=== PATIENT | female | born 1980 | race African-American/Black ===

== ENCOUNTER 2016-09-24 04:57 | Inpatient (IN) ==
[2016-09-24] MEDS ORDERED: BUTORPHANOL 2 MG/ML VIAL IV PRN (05:19)
[2016-09-24] MEDS ORDERED: ONDANSETRON 4 MG/2 ML VIAL IV PRN (05:19)
[2016-09-24] MEDS ORDERED: MEPERIDINE 50 MG/1 ML VIAL IV PRN (05:19)
[2016-09-24] MEDS ORDERED: OXYTOCIN/LR 20 UNIT/1,000 ML BAG IV SCH (05:30)
[2016-09-24] MEDS: LACTATED RINGERS 1,000 ML IV SCH ×3 (05:50→14:11)
[2016-09-24 05:54] LABS: Basophils % 0.5 % (0.0-0.8); Eosinophils % 0.5 % (0.00-10.9); Hemoglobin 11.8 GM/DL (12.0-16.0); Immature Granulocytes % 1.2 %; Immature Granulocytes Absolute 0.07 #; Lymphocytes # 1.8 10*3/uL (1.4-4.0); Mean Corpuscular HGB Conc 32.8 GM/DL (32-36); Mean Corpuscular Hemoglobin 30 PG (27-34); Mean Corpuscular Volume 91.6 FL (87-102); Mean Platelet Volume 10.8 FL (9.6-12.0); Monocytes # 0.6 10*3/uL (0.11-0.8); Monocytes % 9.4 % (1.7-12.7); Neutrophils # 3.5 10*3/uL (1.4-7.4); Neutrophils % 58.4 % (38.7-73.9); Platelet Count 159 T/CUMM (130-400); Red Blood Count 3.93 MC/CUMM (3.8-5.5); Red Cell Distribution Width 16.3 % (9.3-17.3); White Blood Count 5.9 T/CUMM (4-12)
[2016-09-24 06:29] LABS: Albumin 2.9 G/DL (3.4-5.0); Bilirubin,Total 0.5 MG/DL (0.2-1.0); Calcium 8.8 MG/DL (8.5-10.1); Osmolality,Calculated 271.7 MOS/KG (273-304); Potassium 3.8 MMOL/L (3.5-5.1); Total Protein 6.5 G/DL (6.4-8.3)
[2016-09-24] MEDS ORDERED: hydrOXYzine HCL 25 MG/1 ML VIAL IM PRN (08:56)
[2016-09-24] MEDS ORDERED: CITRIC ACID/SODIUM CITRATE 30 ML UDCUP PO ONE (08:56)
[2016-09-24] MEDS ORDERED: ONDANSETRON 4 MG/2 ML VIAL IV ONE (08:56)
[2016-09-24] MEDS ORDERED: LACTATED RINGERS 1,000 ML IV ONE (08:56)
[2016-09-24] MEDS ORDERED: fentaNYL 2 MCG/ROPIV 0.2% EPID 150 ML EPIDURAL SCH (08:56)
[2016-09-24] MEDS ORDERED: PROMETHAZINE 25 MG/1 ML VIAL IM ONE (08:56)
[2016-09-24] MEDS ORDERED: FAMOTIDINE 20 MG/2 ML VIAL IV ONE (08:56)
[2016-09-24] MEDS ORDERED: diphenhydrAMINE 50 MG/1 ML VIAL IV PRN ×2 (08:56)
[2016-09-24] MEDS ORDERED: ePHEDrine 50 MG/ML AMP IV PRN (08:56)
--- NOTE | 2016-09-24 09:02 | OB/GYN History & Physical ---
History of Present Illness Chief complaint: Here for inducion of labor at term with favorable cervix History of present illness: Ms. Henriquez is a 35 year old female that is a with an EDC 09/30/16 per ultrasound with EGA @ 39.1 wks. Records are available, up to date, and reviewed. She has had a total of 14 visits and 5 ultrasounds. During the course of her she has had a fibroid with increasing pain until approximately 20 wks that resolved, Vitamin D deficiency and given Vitamin D supplementation throughout , cervical change- placed on maternity leave, procardia 10 mg po every 4 hours, Celestone IM x 2 doses, and bedrest. Labs: Blood type O positive; Antibody screen negative; Rubella immune; VDRL non reactive; Urine culture negative; HBsAg negative; HIV negative; GC negative; Chlamydia negative; UDS negative; Vitamin D 9.4; Cystic Fibrosis negative; MSAFP negative; Diabetic Screen 123; H/H 08/30/16 10.6/34.4; GBS negative Home Medications Medication Instructions Recorded Confirmed Type No122/Iron/Folic Acid 1 each PO DAILY 03/23/16 09/24/16 History [ Multi Tablet] Allergies Allergy/AdvReac Type Severity Reaction Status Date / Time No Known Allergies Allergy Unverified 03/23/16 19:50 12 point system: reviewed and no additional remarkable complaints except as stated Medical,Surgical,& Family Hx - Medical History Reproductive: History of: Reproductive Problems (fibroids) Other: History of: Miscellaneous Medical Problems (bacterial vaginosis) - Surgical History Surgical History: noncontributory Reproductive Surgeries: Patient denies;: Breast Surgery, Section, Dilation and Curettage, Gynecologic Surgery, Hysterectomy, Tubal Ligation - Social History Smoking Status: Never smoker Frequency of Alcohol Use: None Type of Drug Use: None Marital Status: Lives With:: Spouse Functional capacity: independent ambulation 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 IUPC and FSE applied without difficulty Breast: bilateral: normal Abdomen obstetrics: Present: bowel sounds normal Vagina: Present: normal moisture Uterus exam: Present: enlarged (gravid, soft, nontender, EFW 7-7.5 pounds) Anus/Rectum: Present: normal perianal skin - Head Head exam: Present: normal inspection - Eye Eye exam: Present: EOMI Pupils: Present: normal accommodation - ENT ENT exam: Present: normal exam - Neck Neck exam: Present: normal inspection - Respiratory Respiratory exam: Present: clear to auscultation bilaterally - Cardiovascular Cardiovascular exam: Present: regular rate and rhythm - GI/Abdominal GI/Abdominal exam: Present: normal bowel sounds - Extremities Exam Extremities exam: Present: normal inspection, normal capillary refill - Back Exam Back exam: Present: normal inspection - Neurological Exam Neurological exam: Present: alert, oriented X3, normal gait - Psychiatric Psychiatric exam: Present: normal affect, normal mood - Skin Skin exam: Present: normal color, warm, dry Assessment and Plan (1) Vitamin D deficiency Status: Acute Current Visit: Yes (2) Elective induction of labor planned Status: Acute Current Visit: Yes (3) Uterine fibroid Status: Acute Current Visit: Yes (4) Intrauterine normal Status: Acute Current Visit: Yes Results - Labs CBC & BMP: 09/24/16 05:47 09/24/16 05:47
[2016-09-24 11:29] LABS: Apearance,Urine CLEAR (Clear); Bilirubin,Urine Negative (Negative); Blood, Urine Negative (Negative); Glucose,Urine (UA) Negative (Negative); Ketones,Urine 20 mg/dL (Negative); Mucus,Urine Occasional /LPF (Occasional); Nitrite,Urine Negative (Negative); Protein,Urine Negative; RBC,Urine <1 /HPF (0-4); Urine Color Yellow (Yellow); Urine Specific Gravity 1.011 (1.001-1.035); Urine Urobilinogen < 2.0 EU/DL (0.2-1.0); WBC,Urine <1 /HPF (0-6)
--- NOTE | 2016-09-24 12:49 | Operative Note ---
Date of procedure: 09/24/16 Pre-op diagnosis: IUP @ 39.1 wks, GBS positive, Induction of Labor Post-op diagnosis: other () Procedure: Patient received dorsal lithotomy position. Patient was draped and prepped. At 1228, head delivered in KASSIDY position with hand presenting with left side of face. He hand-delivered and posterior shoulder delivered. Anterior shoulder delivered easily without difficulty. delivered in usual fashion and secured. Mouth and nose bulb suctioned. Cord double clamped and cut. Cord blood and cord gases obtained. Male placed in radiant warmer and attended per nursery nurse. At 1232, spontaneous delivery of placenta via Piter position, with 3 vessel cord noted, normal cord insertion, with minimal calcifications. Hemostasis maintained with fundal massage and Pitocin 20 units in 1000 cc of lactated Ringer. Perineum inspected with periurethral laceration noted and repaired with 3-0 chromic. July with Apgars 8 and 9 weighing 8 pounds and 1 ounce Mother and baby stable. Mother desires to breast-feed. Anesthesia: epidural Surgeon / Physician: Lali Tolliver Estimated blood loss: other (150cc) Specimens: other (Placenta to pathology secondary to group beta strep positive) Condition: stable Disposition: floor Results - Labs CBC & BMP: 09/24/16 05:47 09/24/16 05:47 Discharge Plan - Discharge Medications No Action No122/Iron/Folic Acid [ Multi Tablet] 1 each PO DAILY - Follow Up or Referral - Forms/Instructions
[2016-09-24] MEDS ORDERED: WITCH HAZEL PADS 100/JAR TOP PRN (13:01)
[2016-09-24] MEDS ORDERED: DIPH/TET/ACEL PERT BOOSTER VACCINE 0.5 ML VIAL IM ONE (13:01)
[2016-09-24] MEDS ORDERED: MEASLES/MUMPS/RUBELLA VACCINE 0.5 ML VIAL SUBCUT ONE (13:01)
[2016-09-24] MEDS ORDERED: HYDROCORTISONE 2.5% RECTAL CREAM 30 GM TUBE TOP PRN (13:01)
[2016-09-24] MEDS ORDERED: ACETAMINOPHEN 325 MG TABLET PO PRN (13:01)
[2016-09-24] MEDS ORDERED: BENZOCAINE 20%/MENTHOL 0.5% SPRAY 56 GM CAN TOP PRN (13:01)
[2016-09-24] MEDS ORDERED: LANOLIN 50% CREAM 0.3 OZ TUBE TOP PRN (13:01)
[2016-09-24] MEDS ORDERED: RHO(D) IMMUNE GLOBULIN 300 MCG SYRINGE IM ONE (13:01)
[2016-09-24] MEDS ORDERED: BISACODYL 10 MG SUPP RECTAL PRN (13:01)
[2016-09-24 13:03] LABS: Cord Venous Blood HCO3 25.6 MMOL/L
[2016-09-24] MEDS: oxyCODONE/ACETAMINOPHEN 5-325 MG TABLET PO PRN ×2 (17:10→22:58)
[2016-09-24] MEDS: IBUPROFEN 800 MG TABLET PO PRN (17:10)
--- NOTE | 2016-09-24 20:14 | Anesthesia Post-Op ---
Anesthesia Post OP - Post Ansesthetic Evaluation Patient seen in post op: Yes Resp: within normal limits CV: within normal limits Mental: within normal limits Temp: within normal limits [id number]: within normal limits Nausea and Vomiting: within normal limits Pain: within normal limits
[2016-09-24] MEDS: FERROUS SULFATE 325 MG TABLET PO SCH (20:23)
[2016-09-24] MEDS: DOCUSATE SODIUM 100 MG CAPSULE PO SCH (20:23)
[2016-09-25] MEDS: oxyCODONE/ACETAMINOPHEN 5-325 MG TABLET PO PRN ×2 (04:44→14:24)
[2016-09-25 06:55] LABS: Basophils % 0.4 % (0.0-0.8); Eosinophils # 0.1 10*3/uL (0.0-0.87); Eosinophils % 1.2 % (0.00-10.9); Hematocrit 32.6 VOL% (35.7-47.0); Hemoglobin 10.5 GM/DL (12.0-16.0); Immature Granulocytes % 0.7 %; Immature Granulocytes Absolute 0.06 #; Lymphocytes # 2.1 10*3/uL (1.4-4.0); Lymphocytes % 22.6 % (21.3-54.2); Mean Corpuscular HGB Conc 32.2 GM/DL (32-36); Mean Corpuscular Hemoglobin 30 PG (27-34); Mean Corpuscular Volume 93.7 FL (87-102); Mean Platelet Volume 10.4 FL (9.6-12.0); Monocytes # 0.9 10*3/uL (0.11-0.8); Monocytes % 9.3 % (1.7-12.7); Neutrophils # 6.1 10*3/uL (1.4-7.4); Neutrophils % 65.8 % (38.7-73.9); Platelet Count 132 T/CUMM (130-400); Red Blood Count 3.48 MC/CUMM (3.8-5.5); Red Cell Distribution Width 16.3 % (9.3-17.3); White Blood Count 9.2 T/CUMM (4-12)
--- NOTE | 2016-09-25 08:11 | OB/GYN Progress Note ---
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 . Desires a tubal ligation for control method of choice A: Day 2, Breastfeding, Anemia, Stable P: Continue routine care. DC home tomorrow. Questions answered to desired level of satisfaction. Exam COAL TOWER OPERATOR - Constitutional Vitals: Vital Signs Temp Pulse Resp BP Pulse Ox 09/25/16 07:21 97.3 F L 78 18 111/62 97 09/25/16 04:00 98.1 F 74 18 110/65 99 09/25/16 02:00 18 09/25/16 00:00 98.0 F 76 18 120/72 98 09/24/16 20:00 97.8 F 87 18 116/67 97 09/24/16 16:45 72 20 115/58 99 09/24/16 15:45 97.4 F L 71 20 117/66 100 09/24/16 12:00 97.2 F L 75 20 129/65 General appearance: no acute distress - Antepartum / Post Post Exam Breast: bilateral: normal Abdomen obstetrics: Present: bowel sounds normal Vagina: Present: normal moisture (no edema, healing well) Uterus exam: Present: enlarged (firm, midline, 2 below umbilicus) Anus/Rectum: Present: normal perianal skin - Head Head exam: Present: normal inspection - Eye Eye exam: Present: EOMI - ENT ENT exam: Present: normal exam - Neck Neck exam: Present: normal inspection - Respiratory Respiratory exam: Present: clear to auscultation bilaterally - Breast Menstruation: other (scant rubra noted on perineal pad) - Cardiovascular Cardiovascular exam: Present: regular rate and rhythm - GI/Abdominal GI/Abdominal exam: Present: normal bowel sounds - Extremities Exam Extremities exam: Present: normal inspection, normal capillary refill, full ROM - Back Exam Back exam: Present: normal inspection - Neurological Exam Neurological exam: Present: alert, oriented X3, normal gait - Psychiatric Psychiatric exam: Present: normal affect, normal mood - Skin Skin exam: Present: normal color, warm, dry Results - Labs CBC & BMP: 09/25/16 06:51 09/24/16 05:47 Labs: Laboratory Results - last 72 hr 09/24/16 09/24/16 09/24/16 05:47 05:47 05:47 WBC 5.9 RBC 3.93 Hgb 11.8 L Hct 36.0 MCV 91.6 MCH 30 MCHC 32.8 RDW 16.3 Plt Count 159 MPV 10.8 Neut % (Auto) 58.4 Lymph % (Auto) 30.0 [place] % (Auto) 9.4 Eos % (Auto) 0.5 Baso % (Auto) 0.5 Neut # (Auto) 3.5 Lymph # (Auto) 1.8 [place] # (Auto) 0.6 Eos # (Auto) 0.0 Baso # (Auto) 0.0 Immature Gran % 1.2 Nucleated RBC % 0.0 Immature Gran # 0.07 Nucleated RBCs # 0.00 Cord VBG pH Cord VBG pCO2 Cord VBG pO2 Cord VBG HCO3 Cord VBG Total CO2 Cord VBG Base Excess Sodium 138 Potassium 3.8 Chloride 106 Carbon Dioxide 22 Anion Gap 13.8 BUN 6 L Creatinine 0.70 GFR Calculation 144 BUN/Creatinine Ratio 8.00 Glucose 82 Calculated Osmolality 271.7 L Calcium 8.8 Total Bilirubin 0.50 AST 13 ALT 11 L Alkaline Phosphatase 145 H Total Protein 6.5 Albumin 2.9 L Globulin 3.6 H Albumin/Globulin Ratio 0.8 L Urine Color Urine Appearance Urine pH Ur Specific [place] Urine Protein Urine Glucose (UA) Urine Ketones Urine Blood Urine Nitrate Urine Bilirubin Urine Urobilinogen Urine Leukocytes Urine RBC Urine WBC Urine Mucus Ur Culture Indicated? Blood Type O POSITIVE Antibody Screen Negative 09/24/16 09/24/16 09/25/16 11:13 Unknown 06:51 WBC 9.2 D RBC 3.48 L Hgb 10.5 L Hct 32.6 L MCV 93.7 MCH 30 MCHC 32.2 RDW 16.3 Plt Count 132 MPV 10.4 Neut % (Auto) 65.8 Lymph % (Auto) 22.6 [place] % (Auto) 9.3 Eos % (Auto) 1.2 Baso % (Auto) 0.4 Neut # (Auto) 6.1 Lymph # (Auto) 2.1 [place] # (Auto) 0.9 H Eos # (Auto) 0.1 Baso # (Auto) 0.0 Immature Gran % 0.7 Nucleated RBC % 0.0 Immature Gran # 0.06 Nucleated RBCs # 0.00 Cord VBG pH 7.345 Cord VBG pCO2 48.0 Cord VBG pO2 21.0 Cord VBG HCO3 25.6 Cord VBG Total CO2 27.1 Cord VBG Base Excess -0.6 Sodium Potassium Chloride Carbon Dioxide Anion Gap BUN Creatinine GFR Calculation BUN/Creatinine Ratio Glucose Calculated Osmolality Calcium Total Bilirubin AST ALT Alkaline Phosphatase Total Protein Albumin Globulin Albumin/Globulin Ratio Urine Color Yellow Urine Appearance Clear Urine pH 8.0 Ur Specific [place] 1.011 Urine Protein Negative Urine Glucose (UA) Negative Urine Ketones 20 Urine Blood Negative Urine Nitrate Negative Urine Bilirubin Negative Urine Urobilinogen < 2.0 H Urine Leukocytes Negative Urine RBC <1 Urine WBC <1 Urine Mucus Occasional Ur Culture Indicated? Not indicated Blood Type Antibody Screen
[2016-09-25] MEDS: DOCUSATE SODIUM 100 MG CAPSULE PO SCH ×2 (09:41→21:24)
[2016-09-25] MEDS: FERROUS SULFATE 325 MG TABLET PO SCH ×3 (09:41→21:24)
[2016-09-25] MEDS: IBUPROFEN 800 MG TABLET PO PRN ×2 (10:05→22:21)
[2016-09-26 07:22] VITALS: BP 129/72
--- NOTE | 2016-09-26 08:43 | Discharge Summary ---
Hospital Course - Hospital Course Hospital Course: Patient is a 35 y/o now P2002 that presented for induction of labor @ 39 wks gestation. Labor progressed under and epidural anesthetic to deliver an 8 pound 1 ounce male with Apgars 8 and 9 experience a periurethral lacertaion that was repaired. She is without difficulty. She has been stable and is being discharged home today. Diagnosis - Discharge Diagnosis (1) Vitamin D deficiency Status: Acute (2) Elective induction of labor planned Status: Resolved (3) Uterine fibroid Status: Resolved (4) Intrauterine normal Status: Resolved (5) (normal spontaneous vaginal delivery) Status: Resolved Discharge Plan - Discharge Data Disposition: Disch To Home/Self Care Condition at Discharge: Stable Discharge Diet: advance to your usual diet Activity: resume usual activities as tolerated Hygiene: may shower Weight Bearing at Discharge: full weight bearing Driving: not for (2 weeks) Contact your physician if you experience:: fever over 101, Difficulty voiding, Redness or swelling, Nausea/Vomiting, Shortness of breath, Bleeding, pain uncontrolled by pain medications - Discharge Medications New Ferrous Sulfate Tab [Feosol Original Tab] 325 mg PO BID #60 tablet Ibuprofen 800 mg PO Q8HR PRN #90 tablet PRN Reason: Pain No Action No122/Iron/Folic Acid [ Multi Tablet] 1 each PO DAILY - Follow Up or Referral Follow Up: Lali Tolliver CFNP [Advanced Practice Nurse] - - Forms/Instructions Exam - Constitutional Vitals: Period Temp Pulse Resp BP Sys/[place]án Pulse Ox Last 24 Hr 97.2 F-98.2 F 70-95 16-20 116-150/58-82 96-98 General appearance: no acute distress - Head Head exam: Present: normal inspection - Eye Eye exam: Present: EOMI Pupils: Present: normal accommodation - ENT ENT exam: Present: normal exam - Neck Neck exam: Present: normal inspection - Respiratory Respiratory exam: Present: clear to auscultation bilaterally - Cardiovascular Cardiovascular exam: Present: regular rate and rhythm - GI/Abdominal GI/Abdominal exam: Present: normal bowel sounds (uterus firm, midline, 3 fingerbreaths below the umbilicus. Scant rubra noted on perineal pad) - Extremities Exam Extremities exam: Present: normal inspection, normal capillary refill, full ROM - Back Exam Back exam: Present: normal inspection - Neurological Exam Neurological exam: Present: alert, oriented X3, normal gait - Psychiatric Psychiatric exam: Present: normal affect, normal mood - Skin Skin exam: Present: normal color, warm, dry Discharge Results Procedures and tests throughout hospitalization: Laboratory Results - last 72 hr 09/24/16 09/24/16 09/24/16 05:47 05:47 05:47 WBC 5.9 RBC 3.93 Hgb 11.8 L Hct 36.0 MCV 91.6 MCH 30 MCHC 32.8 RDW 16.3 Plt Count 159 MPV 10.8 Neut % (Auto) 58.4 Lymph % (Auto) 30.0 [place] % (Auto) 9.4 Eos % (Auto) 0.5 Baso % (Auto) 0.5 Neut # (Auto) 3.5 Lymph # (Auto) 1.8 [place] # (Auto) 0.6 Eos # (Auto) 0.0 Baso # (Auto) 0.0 Immature Gran % 1.2 Nucleated RBC % 0.0 Immature Gran # 0.07 Nucleated RBCs # 0.00 Cord VBG pH Cord VBG pCO2 Cord VBG pO2 Cord VBG HCO3 Cord VBG Total CO2 Cord VBG Base Excess Sodium 138 Potassium 3.8 Chloride 106 Carbon Dioxide 22 Anion Gap 13.8 BUN 6 L Creatinine 0.70 GFR Calculation 144 BUN/Creatinine Ratio 8.00 Glucose 82 Calculated Osmolality 271.7 L Calcium 8.8 Total Bilirubin 0.50 AST 13 ALT 11 L Alkaline Phosphatase 145 H Total Protein 6.5 Albumin 2.9 L Globulin 3.6 H Albumin/Globulin Ratio 0.8 L Urine Color Urine Appearance Urine pH Ur Specific [place] Urine Protein Urine Glucose (UA) Urine Ketones Urine Blood Urine Nitrate Urine Bilirubin Urine Urobilinogen Urine Leukocytes Urine RBC Urine WBC Urine Mucus Ur Culture Indicated? Blood Type O POSITIVE Antibody Screen Negative 09/24/16 09/24/16 09/25/16 11:13 Unknown 06:51 WBC 9.2 D RBC 3.48 L Hgb 10.5 L Hct 32.6 L MCV 93.7 MCH 30 MCHC 32.2 RDW 16.3 Plt Count 132 MPV 10.4 Neut % (Auto) 65.8 Lymph % (Auto) 22.6 [place] % (Auto) 9.3 Eos % (Auto) 1.2 Baso % (Auto) 0.4 Neut # (Auto) 6.1 Lymph # (Auto) 2.1 [place] # (Auto) 0.9 H Eos # (Auto) 0.1 Baso # (Auto) 0.0 Immature Gran % 0.7 Nucleated RBC % 0.0 Immature Gran # 0.06 Nucleated RBCs # 0.00 Cord VBG pH 7.345 Cord VBG pCO2 48.0 Cord VBG pO2 21.0 Cord VBG HCO3 25.6 Cord VBG Total CO2 27.1 Cord VBG Base Excess -0.6 Sodium Potassium Chloride Carbon Dioxide Anion Gap BUN Creatinine GFR Calculation BUN/Creatinine Ratio Glucose Calculated Osmolality Calcium Total Bilirubin AST ALT Alkaline Phosphatase Total Protein Albumin Globulin Albumin/Globulin Ratio Urine Color Yellow Urine Appearance Clear Urine pH 8.0 Ur Specific [place] 1.011 Urine Protein Negative Urine Glucose (UA) Negative Urine Ketones 20 Urine Blood Negative Urine Nitrate Negative Urine Bilirubin Negative Urine Urobilinogen < 2.0 H Urine Leukocytes Negative Urine RBC <1 Urine WBC <1 Urine Mucus Occasional Ur Culture Indicated? Not indicated Blood Type Antibody Screen DS: Provider Date of admission: 09/24/16 04:57 Primary care physician: . No PCP Attending physician on admission: Michael Guerrero DO Consults: 09/24/16 05:19 Consult to Anesthesiology [CONS] Routine Consulting Provider: Reason for Anesthesiology: Epidural Consult Comment: Epidural for pain managment 09/24/16 13:01 Consult to Product Support Technician [CONS] Routine Consult Product Support Technician: Breast Feeding Discharging clinician: ALBARO Stanley
[2016-09-26] MEDS: DOCUSATE SODIUM 100 MG CAPSULE PO SCH (09:43)
[2016-09-26] MEDS: FERROUS SULFATE 325 MG TABLET PO SCH (09:43)
--- NOTE | 2016-09-26 11:17 | Pathology Report from [facility] ---
[employer] ACCESSION # : [id number] PATIENT NAME : Arabella Henriquez ORDERING DR : COLE DENNEY DO CLINICAL HX: IUP @ 39.1 wks, Spontaneous vaginal delivery, uterine fibroid POST-OP DX: Same SPECIMEN INFO: Placenta GROSS DESCRIPTION: The specimen is received fresh labeled ARABELLA HENRIQUEZ consists of a 451.0 gm placenta measuring 18.0 x 16.0 x 2.5 cm. The membranes are jean and translucent. The umbilical cord measures 16.0 cm, contains three vessels and is eccentrically inserted. The surface is blue -mcintyre partially circumarginate. The maternal surface is red-mcintyre and intact with a few scattered calcifications seen. Sectioning reveals no gross abnormalities. Sections submitted: (A) membranes and cord and (B) and maternal surfaces. DIAGNOSIS FOR ARABELLA HENRIQUEZ: PLACENTA, MEMBRANES, UMBILICAL CORD: Focal placental infarction with dystrophic calcification, moderate intervillous blood. Tri-vessel umbilical cord. Membranes with focal chronic inflammation and attached blood. COLLECTED DATE: 09/25/2016 [facility] REPORT DATE: 09/26/2016 ELECTRONICALLY SIGNED BY: Chris Abdul M.D. 09/26/2016 - 10:20:30 [facility]
== END 2016-09-26 11:45 | disposition home or self-care (01) | DRG 775 ==
LOC: N.LD 04:57 → N.OB 15:42
PROVIDERS: ADMIT Obstetrics & Gynecology; ATTEND Obstetrics & Gynecology